=== PATIENT | male | born 1970 | race Caucasian/White ===

== ENCOUNTER → 2019-09-29 | Outpatient (CLI) | payer OTHER ==
--- NOTE | 2019-09-29 19:04 | CT ---
EXAMINATION TYPE: CT abdomen pelvis w con DATE OF EXAM: 09/29/2019 COMPARISON: None HISTORY: Right lower quadrant abdominal pain and tenderness x2 days. CT DLP: 1348.2 mGycm Automated exposure control for dose reduction was used. CONTRAST: Performed with IV Contrast, patient injected with 100ml mL of Isovue 300. Multiple axial sections were obtained from the diaphragm to the floor the pelvis with oral and intrav enous contrast. Lung bases are clear. There is no pleural effusion. Heart size is normal. Liver appears normal. Bile ducts are not dilated. Gallbladder pancreas stomach appear normal. There a re small calcified splenic granulomata. There is no adrenal mass. There is 2 cm cortical cyst upper pole right kidney. Kidneys show satisfact ory contrast opacification. There is no hydronephrosis. Ureters are not dilated. There is no retroper itoneal adenopathy. Appendix appears normal. Bladder distends smoothly. There is no inguinal hernia. There is no free fluid in the pelvis. There is no mesenteric edema. There is no ascites or free air. There is no evidence of a bowel obstru ction. Lumbar vertebra have normal alignment. Disc spaces are fairly normal. Bony pelvis appears intact. IMPRESSION: Negative CT scan abdomen and pelvis. Normal appendix.
== END | disposition home or self-care (01) ==
LOC: RADCTMAIN 16:11
PROVIDERS: ATTEND Physician Assistant Medical
DX: R10.31 Right lower quadrant pain (principal); R10.813 Right lower quadrant abdominal tenderness; R10.824 Left lower quadrant rebound abdominal tenderness
CPT/HCPCS: 74177; Q9967

== ENCOUNTER 2021-06-20 11:48 | Emergency (ER) | payer OTHER ==
[2021-06-20 12:11] VITALS: BP 136/89; PULSE 75; RESP 18; TEMP 98.4
--- NOTE | 2021-06-20 12:36 | XR ---
EXAMINATION TYPE: XR wrist complete RT DATE OF EXAM: 06/20/2021 COMPARISON: NONE HISTORY: Pain TECHNIQUE: Four views submitted. FINDINGS: The osseous structures are intact. The joint spaces are preserved and there is no acute fracture or dislocation. Corticated density adjacent to the ulnar styloid likely related to remote trauma. Cystic change involving the head of the third metacarpal likely post arthritic. IMPRESSION: 1. No definite acute fracture or dislocation if symptoms persist, follow-up study in 7 to 10 days wo uld be suggested
--- NOTE | 2021-06-20 13:00 | ED ---
Upper Extremity HPI - General Chief Complaint: Extremity Injury, Upper Stated Complaint: R wrist injury, [facility] Time Seen by Provider: 06/20/21 11:59 Source: patient Mode of arrival: ambulatory Limitations: physical limitation - History of Present Illness Initial Comments: Patient is a 50-year-old male presenting to the emergency Department with complaints of right wrist pain. 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 Patient does have a previous fracture of his distal radius and ulna. He has no hardware present. He states the pain continued today so he wanted an x-ray. He denies any further complaints today. - Related Data Home Medications Medication Instructions Recorded Confirmed No Known Home Medications 06/20/21 06/20/21 Allergies Allergy/AdvReac Type Severity Reaction Status Date / Time No Known Allergies Allergy Verified 06/20/21 12:46 Review of Systems ROS Statement: Those systems with pertinent positive or pertinent negative responses have been documented in the HPI. ROS Other: All systems not noted in ROS Statement are negative. Past Medical History Past Medical History: No Reported History History of Any Multi-Drug Resistant Organisms: None Reported Past Surgical History: No Surgical Hx Reported Past Psychological History: No Psychological Hx Reported Smoking Status: Never smoker Past Alcohol Use History: Occasional Past Drug Use History: None Reported General Exam - General Exam Comments Initial Comments: GENERAL: Patient is well-developed and well-nourished. Patient is nontoxic and in no acute distress. HEAD: Atraumatic, normocephalic. EYES: Pupils equal round and reactive to light, extraocular movements intact, sclera anicteric, conjunctiva are normal. Eyelids were unremarkable. LUNGS: Unlabored respirations. Breath sounds clear to auscultation bilaterally and equal. No wheezes rales or rhonchi. HEART: Regular rate and rhythm without murmurs, rubs or gallops. MUSCULOSKELETAL: She has pain with palpation of the distal end of the radius, no snuffbox tenderness. He also has some pain along the ulnar aspect as well. Does have some mild swelling present. He has pain with opposition. Neurovascular intact. No clubbing or cyanosis. NEUROLOGICAL: Patient is alert and oriented x 3. SKIN: Warm, Dry, normal turgor, no rashes or lesions noted. Limitations: physical limitation Course Vital Signs 09/23/21 11:54 Temperature 98.4 F Pulse Rate 75 Respiratory 18 Rate Blood Pressure 136/89 O2 Sat by Pulse 95 Oximetry Medical Decision Making - Medical Decision Making Patient is a 50-year-old male here with right wrist pain after he was working yesterday, the drill caught and twisted his wrist all the way around, to supinated position. He does have previous fracture of distal radius and ulna. No hardware present. X-rays today revealed no acute fracture dislocations. He has no snuffbox tenderness. I feel like this is most likely a sprain. I recommended ice, ibuprofen for discomfort. If symptoms persist without improvement after 10 days, recommend repeat x-ray. He is agreeable to this plan of care and he is stable for discharge. Disposition Clinical Impression: Right wrist pain Disposition: HOME SELF-CARE Condition: Stable Instructions (If sedation given, give patient instructions): Wrist Injury (ED) Additional Instructions: Please return to the Emergency Department if symptoms worsen or any other concerns. X-rays today show no acute fracture or dislocation. Recommend ibuprofen and ice for discomfort. Follow-up with your primary care if symptoms persist without improvement after 1-2 weeks. Is patient prescribed a controlled substance at d/c from ED?: No Referrals: Filemon Ramsay DO [Primary Care Provider] - 1-2 days Time of Disposition: 12:59
== END 2021-06-20 13:16 | disposition home or self-care (01) ==
LOC: EC 11:48
DX: M25.531 Pain in right wrist (principal); M79.89 Other specified soft tissue disorders; W31.1XXA Contact with metalworking machines, initial encounter; Y93.89 Activity, other specified; Y99.0 Civilian activity done for income or pay
CPT/HCPCS: 99283

== ENCOUNTER → 2024-01-05 | Outpatient (CLI) | payer OTHER ==
--- NOTE | 2024-01-06 07:46 | XR ---
EXAMINATION TYPE: XR chest 2V DATE OF EXAM: 01/05/2024 COMPARISON: NONE TECHNIQUE: PA and lateral views submitted. HISTORY: None FINDINGS: The lungs are clear and there is no pneumothorax, pleural effusion, or focal pneumonia. Heart size normal and no overt failure. Osseous structures intact. Calcified lymph node in the left hilum. IMPRESSION: 1. No acute process.
== END | disposition home or self-care (01) ==
LOC: RADXRYALE 16:13
PROVIDERS: ATTEND Family Medicine
DX: R05.9 Cough, unspecified (principal)
CPT/HCPCS: 71046